=== PATIENT | male | born 1990 | race Caucasian/White ===

== ENCOUNTER 2018-01-08 19:24 | Emergency (ER) | payer OTHER ==
[2018-01-08 19:33] VITALS: BP 144/86
--- NOTE | 2018-01-08 22:08 | RADIOLOGY REPORT ---
EXAMINATIONS: RIGHT FOOT AND TIB/FIB 5 VIEWS CLINICAL INFORMATION: Pain following injury. COMPARISON: None. TECHNIQUE: AP, lateral, oblique views of the right foot were obtained in addition to AP and lateral views of the right tib-fib. FINDINGS: There are no fractures or dislocations. There is mild soft tissue swelling anterior to the mid tibia. No ankle joint effusion is identified. IMPRESSION: Mild soft tissue swelling without fracture or joint effusion.
--- NOTE | 2018-01-08 22:10 | RADIOLOGY REPORT ---
EXAMINATION: ELBOW 3 VIEWS, RIGHT CLINICAL INFORMATION: Right elbow pain following blunt trauma. COMPARISON: None. TECHNIQUE: AP, lateral, oblique views of the right elbow are provided. FINDINGS: There are no fractures or dislocations. There is no elbow joint effusion. IMPRESSION: Unremarkable right elbow radiographs.
[2018-01-08] MEDS ORDERED: IBUPROFEN600 M1 PO (22:19)
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
== END 2018-01-08 22:29 ==
LOC: ERH 19:24
DX: S80.11XA Contusion of right lower leg, initial encounter (principal); S50.01XA Contusion of right elbow, initial encounter; W22.8XXA Striking against or struck by other objects, initial encounter; Y92.9 Unspecified place or not applicable; Y92.89 Other specified places as the place of occurrence of the external cause
CPT/HCPCS: 73080-RT; 73590-RT; 73630-RT; 90471; 90714